=== PATIENT | male | born 1990 | race Two or more races ===

== ENCOUNTER 2023-08-30 10:05 | Emergency (ER) | payer OTHER, SELFPAY ==
--- NOTE | ~2023-08-30 | XR_ITS ---
EXAMINATION: XR KNEE, RIGHT CLINICAL INFORMATION: Right knee injury and pain COMPARISON: None available. TECHNIQUE: AP and lateral views of the right knee. FINDINGS: BONES: Bony structures are intact. Medial and lateral tibial plateau, right patellar articular border and distal right femoral articular trochlea osteophytes are present. There is no focal bone destruction or periosteal reaction seen. JOINTS: Alignment of joints is normal. There is mild asymmetric decrease in medial compartment right knee joint space. SOFT TISSUE: Soft tissue is normal. No radiopaque foreign body or abnormal air collection is seen. XR/XR knee RT 2V IMPRESSION: 1. Tricompartmental right knee osteoarthritis is present. 2. No fracture or dislocation or signs of osteomyelitis are found.
[2023-08-30 11:15] VITALS: BP 133/76; PULSE 82; RESP 16; TEMP 36.9; O2SAT 98; BMI 60.2
--- NOTE | 2023-08-30 11:17 | ED.GENADULT ---
HPI - General Adult General Chief complaint: Extremity Injury, Lower Stated complaint: R Knee Pain Work Injury 08/30/23 Time Seen by Provider: 08/30/23 13:06 Source: patient Mode of arrival: wheelchair Limitations: no limitations History of Present Illness HPI narrative: Patient is a 32-year-old male who presents emergency department for evaluation of traumatic right knee pain. 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 He was unable to get down the stairs afterwards. This occurred in [place], [place], EMS personnel was called and he was assisted down the stairs by EMS in to his family members vehicle in the area. They did not want to be transported to a local hospital, therefore he was driven here by family. Has been unable to bear weight on the knee since this happened. He does report a history of meniscus injury and arthritis to the left knee for which he typically takes tramadol for pain management, though he did not take any today. At this time pain is localized primarily along the lateral aspect of the knee and more so in the superior region. Denies numbness or tingling. Related Data Allergies Allergy/AdvReac Type Severity Reaction Status Date / Time No Known Allergies Allergy Verified 08/30/23 11:17 Review of Systems Review of Systems: Yes all other systems are reviewed and are negative [facility] Past Medical History Attestation statement: The following information was validated with the patient. Source: old records reviewed Social History Social History Advance Directives: No Advance Directives Information Provided: No Physical Exam ED Vital Signs: Vital Signs - 24 hr 08/30/23 11:15 Temperature 98.4 F Pulse Rate 82 Respiratory Rate 16 Blood Pressure 133/76 Pulse Oximetry 98 Oxygen Delivery Method Room Air BMI result Body Mass Index 60.2 Appearance: Alert.?Oriented to person, place and time. No acute distress.?Normal affect. Eyes: Pupils equal, round and reactive to light.? ENT: Pharynx normal.?? Neck: Normal inspection.? Neck supple.?? CVS: Heart sounds normal. Normal heart rate and rhythm.? Pulses normal.?? Respiratory: No respiratory distress.? Lung sounds clear to auscultation bilaterally?? Abdomen: Soft and non-tender. Normoactive bowel sounds. Skin: Skin warm and dry.? Normal skin color.? Extremities: No lower extremity edema.? No calf ttp? 2+ DP/PT pulse bilaterally. Palpable tenderness along the lateral aspect of the right knee, especially to distal thigh /suprapatellar region With localized swelling Neuro: Moves all extremities spontaneously. Sensation intact bilaterally. CN II-XII intact. No focal neuro deficits. Ambulates with normal steady gait. Course Course Course Narrative: RME performed by Deb Sanders PA-C. Patient is a 32 year old assigned male at presenting to the emergency department with right knee pain. Detailed physical exam and review of systems are deferred to the settlement processor. Imaging ordered. Patient placed back in the waiting room pending room availability and results. Reevaluation(s) Reevaluation #1: X-ray reveals evidence of tricompartmental osteoarthritis, no evidence of acute fracture dislocation. Reviewed these findings with patient and family. Recommended weight-bearing as tolerated. Ambulatory with steady gait in the use of his cane. Stable for discharge home. Outpatient follow-up with primary care provider Time: 15:01 Medications Administered Discontinued Medications Generic Name Dose Route Start Last Admin Trade Name Freq PRN Reason Stop Dose Admin Tramadol HCl 50 mg 08/30/23 13:46 08/30/23 13:50 Tramadol Hcl 50 Mg Tablet PO 08/30/23 13:47 50 mg ONCE ONE Administration Medical Decision Making Medical Decision Making MDM Narrative: patient is a 32-year-old male with past medical history of depression, GERD, arthritis, chronic pain management with tramadol presenting to emergency department for evaluation of traumatic right knee pain as per HPI. Extremities neurovascularly intact distally. Has notable tenderness predominantly to the lateral knee in the suprapatellar/distal thigh region with localized swelling. plan to trial pain management with tramadol and obtain XR for further evaluation Differential Diagnosis Differential Diagnoses: The differential diagnosis associated with the presentation includes ( Fracture, dislocation, ligamentous injury, muscular strain) Independent Interpretation I performed an independent interpretation of an: Plain X-Ray ( no fracture) Radiology Impression Discussion of test interpretation with radiology: I have reviewed the radiologist's reading. Radiologist Impression: XR/XR knee RT 2V IMPRESSION: 1. Tricompartmental right knee osteoarthritis is present. 2. No fracture or dislocation or signs of osteomyelitis are found. Independent Historian Clinical information obtained from an independent historian. History obtained from or confirmed by: Other ( family present who confirms history) External Record Review External record reviewed: Other ([facility]) Prescription Management I considered prescription management with: Pain Medication Discharge Plan Discharge Clinical Impression: Osteoarthritis of knee Qualifiers: Laterality: right Patient Disposition: Home, Self-Care Instructions: Osteoarthritis (ED) Additional Instructions: You can take ibuprofen 200 mg, 3 tablets (600mg) every 6-8 hours as needed for pain, in addition to Tylenol 500 mg, 2 tablets (1,000mg) every 4-6 hours as needed for pain, but not to exceed 3 doses daily (3,000mg).? Use the cane to provide assistance with walking. in addition continue using your tramadol as previously prescribed. Contact your primary care provider to arrange for a follow-up visit. Return back to emergency department any new or worsening symptoms or concerns. Referrals: Physician,Unknown J [Primary Care Provider] - Print Language: Uruguayan
[2023-08-30] MEDS: traMADoL HCL 50 MG TABLET PO (13:50)
[2023-08-30 15:21] VITALS: BP 133/76; PULSE 82; RESP 20; TEMP 36.9; O2SAT 98
== END 2023-08-30 15:22 | disposition home or self-care (01) ==
PROVIDERS: Emergency Provider Emergency Medicine
DX: M17.11 Unilateral primary osteoarthritis, right knee (principal)
CPT/HCPCS: 73560; 99283

== ENCOUNTER 2024-12-02 12:01 | Emergency (ER) | payer OTHER, SELFPAY ==
--- NOTE | 2024-12-02 12:20 | ED.GENADULT ---
HPI - General Adult General Chief complaint: General Medical Stated complaint: Rectal pain Time Seen by Provider: 12/02/24 16:31 History of Present Illness ED Provider: Raymond Montes De Oca MD HPI narrative: 34-year-old male with no significant medical history complains of constipation and rectal pain passing hard stools denies bleeding. In the past he was diagnosed with hemorrhoids. No previous colonoscopy. Related Data Previous Rx's ?Medication ?Instructions ?Recorded docusate sodium 100 mg capsule 100 mg PO BID 30 days #60 caps 12/02/24 (Colace) hydrocortisone acetate 25 mg 25 mg OH BID 7 days #24 ea 12/02/24 rectal suppository (Anusol-HC) polyethylene glycol 3350 17 17 g PO DAILY #238 grams 12/02/24 gram/dose oral powder (Miralax) Allergies Allergy/AdvReac Type Severity Reaction Status Date / Time No Known Allergies Allergy Verified 12/02/24 12:23 [facility] Social History Social History Smoked in Last 30 Days: No Use of substances other than those prescribed or required for medical reasons: Yes Substance Use Type: Marijuana Substance Use Frequency: Daily Advance Directives: No Advance Directives Information Provided: No Physical Exam ED Vital Signs: BMI result Body Mass Index 51.1 GENERAL: Well appearing. No apparent distress. Alert. HEAD/NECK: No visual trauma. EYES: Normal to inspection. No conjunctival erythema. No discharge. ENMT: Hearing grossly normal. External nose normal. RESPIRATORY: Respiratory effort normal. CARDIOVASCULAR: Additional details (Grossly well perfused). SKIN: No jaundice. NEUROLOGICAL: Alert. Moving all extremities x4. Additional details (No gross motor deficits. Normal tone. ). PSYCHIATRIC: Alert. Appearance appropriate for situation. GI/rectal: Chaperoned by nurse. After mucosal membrane lidocaine application attempt at digital rectal exam was unsuccessful given the patient's pain level. I did immediately feel hard stool but was unable to enter the rectal vault any further. There was no external fluctuance or tenderness or signs of external hemorrhoid. Subsequent attempt was made with small vaginal speculum as anoscopy was not available to me. Patient did not tolerate this and declined any additional examination. Abdomen soft, obese but nontender no masses Course Course Course Narrative: This is an RME: Additional HPI, ROS, PE not included below will be deferred to primary provider. RME assessment and note performed by: Shama Braga PA-C This is a 34-year-old male who presents to the ER accompanied by , who presents to the ER with a complaint of rectal pain. Reports that he was constipated for several days 2 weeks ago. Reports that when he is about to have a bowel movement he gets alot of burning, itching in his anus. Unable to visualize in triage secondary to limited privacy. He has a hx of hemorrhoids. No external hemorrhoids. No fevers, chills, diarrhea, constipation. Plan: Further exam Medications Administered Discontinued Medications Generic Name Dose Route Start Last Admin Trade Name Irasema PRN Reason Stop Dose Admin Lidocaine HCl 10 ml 12/02/24 16:32 12/02/24 17:30 Lidocaine Hcl 2 % Urojet 10 Ml Jel.Pf.Yang TOPICAL 12/02/24 16:33 10 ml ONCE ONE Administration Medical Decision Making Medical Decision Making MDM Narrative: 34-year-old male with severe rectal pain. No external hemorrhoids masses fluctuance or signs of infection. Limited exam due to patient's pain offered additional examination under anxiolysis and/or sedation if needed patient declined. Plan for conservative therapy with fluids, laxatives, increase fiber, anal steroid applicator Discharge Plan Discharge Clinical Impression: Pain, rectal Patient Disposition: Home, Self-Care Instructions: Proctitis (ED), Sitz Bath (DC) Additional Instructions: DISCHARGE DIAGNOSES: Rectal pain unclear cause HISTORY OF PRESENTATION: ?Constipation and rectal pain EMERGENCY DEPARTMENT COURSE,TESTS, TREATMENTS: While in the ED today we attempted rectal exam with lidocaine topical anesthesia of the anus you were unable to tolerate this. After a shared decision-making discussion you deferred any further examination. DISCHARGE MEDICATIONS: ?We have prescribed an anal steroid. We recommend [id number] Sitz bath as we described you should use Epsom salt in a warm bath to sit in twice per day for the next week. We have also prescribed a laxative and stool softeners FOLLOW-UP: ?Call your primary or general physician soon as possible to discuss your symptoms, your ED visit and to discuss follow up plans If you develop worsening or severe pain high fevers, pus drainage or bleeding from the anus return back to the emergency department INSTRUCTIONS ?& RETURN PRECAUTIONS: If any symptoms change first call your primary physician, if it is after-hours your primary doctors office should have a provider reconnaissance crewmember you can speak with. If the symptoms are severe or very concerning to you then call 911 or return to the ED. Raymond Montes De Oca MD Emergency Physician [facility] Prescriptions: New docusate sodium [Colace] 100 mg capsule 100 mg PO BID 30 Days Qty: 60 0RF hydrocortisone acetate [Anusol-HC] 25 mg suppository 25 mg OH BID 7 Days Qty: 24 0RF polyethylene glycol 3350 [Miralax] 17 gram/dose powder 17 g PO DAILY Qty: 238 0RF Interventions: ED Discharge Assessment Last Done: 12/02/24 17:55 Discharge Date/Time: 12/02/24 17:57 Print Language: Thai
[2024-12-02 12:21] VITALS: BP 120/69; PULSE 88; RESP 16; TEMP 36.4; O2SAT 100; BMI 51.1
--- OUTSIDE RECORDS SUMMARY | 2024-12-02 15:48 | XMS_ITS | Patient Health Record ---
Author Organization [facility] Medical Address [address] [id number] Care Team Providers Care Truck Striker Name Role Phone Collins Sanders [phone] Reason For Referral No Information Medications Medication SIG (Take, Route, Frequency, Duration) Notes Start Date End Date Status Benzonatate 100 MG 1-2 capsule as neede d Orally at bedtime as needed for cough for 30 days 05/15/2019 Not-Taking Ondansetron HCl 8 mg 1 tablet as needed Orally Twice a day for 10 days 09/02/2019 Active Fluticasone Propionate 50 MCG/ACT 1 spray in each nostril Nasally Once a day for 30 day(s) 05/15/2019 Not-Taking Doxycycline Monohydrate 100 MG 1 capsule Orally every 12 hrs for 7 days 05/15/2019 Not-Taking Cetirizine HCl 10 MG 1 tablet Orally Onc e a day for 30 day(s) 05/15/2019 Not-Taking Anti-Diarrheal 2 MG 1 tablet as needed Orally Four times a day Active Meloxicam 15 MG 1 tablet Orally Once a day for 30 day(s) Active Pepto-Bismol 524 MG/30ML 30 ml every 30 minutes to 1 hour as needed Orally 8 time(s) a day OTC Not-[place] reyez Social History Tobacco Use: Social History Observation Description Date Details (start date - stop date) Never Smoker NA - NA Tobacco Use (OLD): Question Answer Notes Are you a: never smoker Sexual Hx: Question Answer Notes Had sex in the last 12 months (vaginal, oral, or anal)? Yes with Women only Use protection? No Prevention Strategies discussed: Other Have you ever had an STD? No Alcohol Screening (OLD): Question Answer Notes Did you have a drink contain ing alcohol in the past year? Yes How often did you have a dri nk containing alcohol in the past year? Two to four times a month (2 points) How many drinks did you have on a typical day when you were drinking in the past year? 7 to 9 (3 points) How often did you have six o r more drinks on one occasion in the past year? Monthly (2 points) Points 7 Interpretation Positive Problems Problem Type SNOMED Code ICD Code Onset Dates Problem Status W/U Status Risk Notes Problem 26201885 Acute gastroenteritis (K52.9) Active confirmed Problem 824277098 Morbid (severe) obesity due to excess calories (E66.01) Active confirmed Problem 663310936 Elevated LDL cholesterol level (E78.00) Active confirmed Plan Of Treatment No Information Medications Administered Medication Instructions Date of Administration Dosage Notes Depo Medrol 80mg/mL 05/15/2019 1 mL Dexamethasone 4 mg/mL 05/15/2019 1 mL Medical (General) History Surgical History Surgery Date(Month/Year) Tonsils at age 11 Ear Tubes on both at very young age, 9, 10 and 11 year old Sinusitis
[2024-12-02] MEDS: Lidocaine HCl 2 % Urojet 10 ML JEL.PF.APP TOPICAL (17:30)
--- NOTE | 2024-12-02 17:50 | PC.NURSE ---
Pt extremely agitated and coming into other pt rooms during care to demand d/c papers. 2nd RN assisted discharge of patient, who crumpled paperwork and left without teaching.
[2024-12-02 17:55] VITALS: BP 120/69; PULSE 88; RESP 16; TEMP 36.4; O2SAT 100
== END 2024-12-02 17:57 | disposition home or self-care (01) ==
PROVIDERS: Emergency Provider Emergency Medicine; PCP Internal Medicine
DX: K62.89 Other specified diseases of anus and rectum (principal)
CPT/HCPCS: 99284